=== PATIENT | female | born 1980 | race Caucasian/White ===

== ENCOUNTER 2017-07-01 06:12 | Emergency (ER) | payer BC, MEDICAID ==
[~2017-07-01] VITALS: Ht 162.6 cm; Wt 52.2 kg
[2017-07-01 06:36] VITALS: BP_SYST 106
[2017-07-01 09:30] VITALS: BP_SYST 148
== END 2017-07-01 09:30 | disposition home or self-care (01) ==
LOC: SED 06:12
DX: J06.9 Acute upper respiratory infection, unspecified (principal); J45.909 Unspecified asthma, uncomplicated; M32.9 Systemic lupus erythematosus, unspecified
CPT/HCPCS: 36415; 86710; 99284